=== PATIENT | male | born 1960 | race Caucasian/White ===

== ENCOUNTER 2018-02-22 11:03 | Inpatient (IN) | payer MEDICARE, OTHER ==
[2018-02-22] MEDS ORDERED: SODIUM CHLORIDE 0.9% 1,000 ML IV STA ×2 (11:20→11:23)
--- NOTE | 2018-02-22 11:30 | ED ---
General Adult HPI - General Chief complaint: Recheck/Abnormal Lab/Rx Stated complaint: Abnormal Labs Time Seen by Provider: 02/22/18 11:16 Source: patient, EMS Mode of arrival: EMS Limitations: no limitations - History of Present Illness Initial comments: This 57-year-old white male presents with some jaundice. He states that this apparently has been going on for approximately one week. He states that he is otherwise asymptomatic. He denies any abdominal pain, fevers, chills, nausea, vomiting, or diarrhea. He currently is living in the [facility]. He is legally blind. He does have a history of the lateral lower extremity chronic wounds. He denies any previous similar incidents. He is only had surgery on his appendix in regard to his abdomen. No other complaints or modifying factors. He denies drinking any alcohol whatsoever. He apparently had a recent ultrasound of his abdomen which showed gallstones. He also had some laboratory done yesterday which does show elevation of his liver function studies with a bilirubin of 7. - Related Data Home Medications Medication Instructions Recorded Confirmed Acetaminophen Tab [Tylenol Tab] 1,000 mg PO Q8H PRN 02/22/18 02/22/18 Bisacodyl 10 mg RECTAL DAILY PRN 02/22/18 02/22/18 Carvedilol [Coreg] 3.125 mg PO BID 02/22/18 02/22/18 Clopidogrel [Plavix] 75 mg PO DAILY 02/22/18 02/22/18 Famotidine [Pepcid] 20 mg PO DAILY 02/22/18 02/22/18 Gabapentin [Neurontin] 400 mg PO Q6H 02/22/18 02/22/18 HYDROcodone/APAP 5-325MG [[place] 1 tab PO Q6H PRN 02/22/18 02/22/18 5-325] Heparin Sodium,Porcine [Heparin 5,000 unit SQ Q12H 02/22/18 02/22/18 Sodium] Insulin Aspart [NovoLOG See Protocol SQ ACHS 02/22/18 02/22/18 (formulary)] Med Plus 2.0 90 ml PO DAILY 02/22/18 02/22/18 Melatonin 5 mg PO HS 02/22/18 02/22/18 Multivitamins, Thera [Multivitamin 1 tab PO DAILY 02/22/18 02/22/18 (formulary)] Polyvinyl Alcohol Danni 1.4% 1 drop LEFT EYE TID 02/22/18 02/22/18 Sertraline [Zoloft] 75 mg PO DAILY 02/22/18 02/22/18 Tamsulosin HCl [Flomax] 0.4 mg PO DAILY 02/22/18 02/22/18 Allergies Allergy/AdvReac Type Severity Reaction Status Date / Time No Known Allergies Allergy Verified 02/22/18 11:17 Review of Systems ROS Statement: Those systems with pertinent positive or pertinent negative responses have been documented in the HPI. ROS Other: All systems not noted in ROS Statement are negative. Past Medical History Past Medical History: CVA/TIA, Diabetes Mellitus, Eye Disorder, Hypertension History of Any Multi-Drug Resistant Organisms: None Reported Past Surgical History: Appendectomy, Joint Replacement, Orthopedic Surgery Past Psychological History: No Psychological Hx Reported Smoking Status: Former smoker Past Alcohol Use History: Occasional Past Drug Use History: None Reported General Exam - General Exam Comments Initial Comments: GENERAL: The patient is well nourished and well hydrated. VITAL SIGNS: Heart rate, blood pressure, respiratory rate reviewed as recorded in nurse's notes. EYES: Pupils are round and reactive. Extraocular movements are intact. No conjunctival / lid redness or swelling. Icterus is noted. ENT: No external evidence of injury, swelling, or ecchymosis. Airway is patent. Throat is clear. NECK: Nontender. No swelling or evidence of injury. No subcutaneous emphysema. Trachea is midline. No thyroid mass. HEART: Regular rate and rhythm. Good peripheral pulses. LUNGS/CHEST: Breath sounds clear and equal bilaterally. No rales, rhonchi, or wheezes. No ecchymosis, subcutaneous emphysema, or tenderness. ABDOMEN: Abdomen soft without tenderness. There is a significantly enlarged liver. No peritoneal signs. No abdominal wall swelling or ecchymosis. EXTREMITIES: No extremity tenderness. Normal muscle tone and function. No thoracolumbar tenderness. NEUROLOGIC: Sensation is grossly intact. Cranial nerve exam reveals face is symmetrical, tongue is midline, speech is clear. SKIN: No abrasions or ecchymosis is noted. No induration or masses noted. Jaundice as noted diffusely. There are chronic ulcers noted to the bilateral foot and ankle area as well as the decubitus region. PSYCHIATRIC: Alert and oriented. Appropriate behavior and judgment. Limitations: no limitations Course Vital Signs 02/22/18 02/22/18 11:07 12:30 Temperature 98.4 F Pulse Rate 60 59 L Respiratory 18 18 Rate Blood Pressure 130/72 143/74 O2 Sat by Pulse 100 99 Oximetry Medical Decision Making - Medical Decision Making The patient was seen and examined. All diagnostics were reviewed. The patient' s liver function studies are significantly elevated. The bilirubin is approximately 8 and the transaminase studies are also significantly elevated. The patient had a gallbladder study done which shows dilation of the biliary system and possible abnormality near pancreatic head. The radiologist recommends a computed tomography scan. The computed tomography scan came back showing a suspected pancreatic carcinoma. There is also again dilated biliary ducts and hydrops of the gallbladder. It is felt as though the patient would require admission to the hospital for further treatment. He was informed of his study findings. The case is discussed with internal medicine and they recommend a GI consult. He is in no distress on recheck and is admitted to the hospital for full admit. - Lab Data Result diagrams: 02/22/18 11:12 02/22/18 11:12 Lab Results 02/22/18 02/22/18 02/22/18 Range/Units 11:12 11:12 11:12 WBC 11.5 H (3.8-10.6) k/uL RBC 4.41 (4.30-5.90) m/uL Hgb 13.3 (13.0-17.5) gm/dL Hct 40.5 (39.0-53.0) % MCV 91.7 (80.0-100.0) fL MCH 30.2 (25.0-35.0) pg MCHC 32.9 (31.0-37.0) g/dL RDW 15.9 H (11.5-15.5) % Plt Count 329 (150-450) k/uL Neutrophils % (Manual) 77 % Lymphocytes % (Manual) 16 % Monocytes % (Manual) 7 % Neutrophils # (Manual) 8.86 H (1.3-7.7) k/uL Lymphocytes # (Manual) 1.84 (1.0-4.8) k/uL Monocytes # (Manual) 0.81 (0-1.0) k/uL Nucleated RBCs 0 (0-0) /100 WBC Rouleaux Present PT 11.5 (9.0-12.0) sec INR 1.2 H (<1.2) APTT 35.3 H (22.0-30.0) sec Sodium 138 (137-145) mmol/L Potassium 5.0 (3.5-5.1) mmol/L Chloride 101 (98-107) mmol/L Carbon Dioxide 24 (22-30) mmol/L Anion Gap 13 mmol/L BUN 14 (9-20) mg/dL Creatinine 0.60 L (0.66-1.25) mg/dL Est GFR (CKD-EPI)AfAm >90 (>60 ml/min/1.73 sqM) Est GFR (CKD-EPI)NonAf >90 (>60 ml/min/1.73 sqM) Glucose 119 H (74-99) mg/dL Plasma Lactic Acid Damaso (0.7-2.0) mmol/L Calcium 9.1 (8.4-10.2) mg/dL Total Bilirubin 8.6 H (0.2-1.3) mg/dL AST 260 H (17-59) U/L ALT 162 H (21-72) U/L Alkaline Phosphatase 1413 H (38-126) U/L Total Protein 7.5 (6.3-8.2) g/dL Albumin 3.1 L (3.5-5.0) g/dL Amylase 61 (30-110) U/L Lipase 180 (23-300) U/L 02/22/ Range/Units 11:12 WBC (3.8-10.6) k/uL RBC (4.30-5.90) m/uL Hgb (13.0-17.5) gm/dL Hct (39.0-53.0) % MCV (80.0-100.0) fL MCH (25.0-35.0) pg MCHC (31.0-37.0) g/dL RDW (11.5-15.5) % Plt Count (150-450) k/uL Neutrophils % (Manual) % Lymphocytes % (Manual) % Monocytes % (Manual) % Neutrophils # (Manual) (1.3-7.7) k/uL Lymphocytes # (Manual) (1.0-4.8) k/uL Monocytes # (Manual) (0-1.0) k/uL Nucleated RBCs (0-0) /100 WBC Rouleaux PT (9.0-12.0) sec INR (<1.2) APTT (22.0-30.0) sec Sodium (137-145) mmol/L Potassium (3.5-5.1) mmol/L Chloride (98-107) mmol/L Carbon Dioxide (22-30) mmol/L Anion Gap mmol/L BUN (9-20) mg/dL Creatinine (0.66-1.25) mg/dL Est GFR (CKD-EPI)AfAm (>60 ml/min/1.73 sqM) Est GFR (CKD-EPI)NonAf (>60 ml/min/1.73 sqM) Glucose (74-99) mg/dL Plasma Lactic Acid Damaso 1.3 (0.7-2.0) mmol/L Calcium (8.4-10.2) mg/dL Total Bilirubin (0.2-1.3) mg/dL AST (17-59) U/L ALT (21-72) U/L Alkaline Phosphatase (38-126) U/L Total Protein (6.3-8.2) g/dL Albumin (3.5-5.0) g/dL Amylase (30-110) U/L Lipase (23-300) U/L Disposition Clinical Impression: Jaundice, Hepatomegaly, Hepatic failure, Pancreatic carcinoma, Gallbladder hydrops, Hypertension, Decubitus ulcer Disposition: [facility] Condition: Fair Referrals: Tyrell Nash MD [Primary Care Provider] - 1-2 days Time of Disposition: 15:51 Decision Date: 02/22/18 Decision Time: 15:51
[2018-02-22] MEDS ORDERED: HYDROcodone/APAP 5-325MG 1 EACH TAB PO STA (11:34)
[2018-02-22 11:56] LABS: ALT 162 U/L (21-72); AST 260 U/L (17-59); Albumin 3.1 g/dL (3.5-5.0); Alkaline Phosphatase 1413 U/L (38-126); Amylase 61 U/L (30-110); Anion Gap 13 mmol/L; Blood Urea Nitrogen 14 mg/dL (9-20); Calcium 9.1 mg/dL (8.4-10.2); Carbon Dioxide 24 mmol/L (22-30); Chloride 101 mmol/L (98-107); Glucose 119 mg/dL (74-99); Lipase 180 U/L (23-300); Sodium 138 mmol/L (137-145); Total Bilirubin 8.6 mg/dL (0.2-1.3); Total Protein 7.5 g/dL (6.3-8.2)
[2018-02-22 12:11] LABS: INR 1.2 (<1.2); Partial Thromboplastin Time 35.3 sec (22.0-30.0); Prothrombin Time 11.5 sec (9.0-12.0)
[2018-02-22 12:13] LABS: HCT 40.5 % (39.0-53.0); HGB 13.3 gm/dL (13.0-17.5); MCH 30.2 pg (25.0-35.0); MCHC 32.9 g/dL (31.0-37.0); MCV 91.7 fL (80.0-100.0); Mean Platelet Volume 7.3; Platelet Count 329 k/uL (150-450); RBC 4.41 m/uL (4.30-5.90); RDW 15.9 % (11.5-15.5); WBC 11.5 k/uL (3.8-10.6)
[2018-02-22 12:25] LABS: Lymphocytes # (M) 1.84 k/uL (1.0-4.8); Monocytes # (M) 0.81 k/uL (0-1.0); Neutrophils # (M) 8.86 k/uL (1.3-7.7); Neutrophils % (M) 77 %; Nucleated Red Blood Cells 0 /100 WBC (0-0); Rouleaux Present; Total Cells Counted 100
--- NOTE | 2018-02-22 12:27 | US ---
EXAMINATION TYPE: US abdomen complete DATE OF EXAM: 02/22/2018 COMPARISON: NONE CLINICAL HISTORY: jaundice. Patient states no abdominal pain, no nausea or vomiting. EXAM MEASUREMENTS: Liver Length: 20.0 cm Gallbladder Wall: 0.2 cm CBD: 1.8 cm Spleen: 10.9 cm Right Kidney: 10.5 x 4.8 x 4.9 cm Left Kidney: 11.3 x 6.2 x 4.8 cm Pancreas: Majority Obscured by bowel gas Liver: Enlarged. Heterogenous. Dilated ducts. Echogenic foci visualized in right lobe measuring 0.6 x 0.6 x 0.9 cm Gallbladder: Hydropic. No stones or sludge visualized. Patient unable to roll to LLD Evidence for sonographic Kaplan's sign: No CBD: Dilated. Distal portion is obscured by bowel gas Spleen: wnl Right Kidney: Echogenic foci visualized measuring 0.6 cm Left Kidney: Cystic area visualized lower pole measuring 1.1 x 1.0 x 1.2 cm. Upper IVC: wnl Abd Aorta: Obscured by overlying bowel gas, visualized portions wnl Visualized portion of pancreas is slightly heterogeneous without mass or ductal dilatation. Portions are secured by overlying bowel gas on images saved. Visualized liver is heterogeneously hyperechoic w ith mild to moderate diffuse intrahepatic ductal dilatation. Evaluation for focal masses suboptimal d ue to the heterogeneity. Technologist ramirez a 6 mm shadowing calcification in the liver right hepatic lobe. Gallbladder has distended margins with dilatation. No shadowing mobile gallstones or perichole cystic fluid is identified. Common bile duct is dilated at 18 mm at level of kacey hepatis. Technolog ist ramirez 1.1 cm exophytic round hypoechoic lesion left kidney mid to lower pole level favoring simpl e cyst but too small to definitively characterize on images saved. Distal CBD cannot be evaluated due to shadowing from overlying bowel gas to see if there is obstructing lesion or abrupt tapering. IMPRESSION: Moderate intrahepatic and extra hepatic biliary dilatation. Advise follow-up CT to furthe r evaluate near ampulla.
[2018-02-22] MEDS ORDERED: RX INFO: IV CONTRAST WAS GIVEN 1 EACH MISC MISCELLANE PRN (13:36)
[2018-02-22] MEDS ORDERED: KETOROLAC 30 MG/ML 1 ML VIAL IVP STA (14:13)
--- NOTE | 2018-02-22 15:05 | CT ---
EXAMINATION TYPE: CT abdomen pelvis w con DATE OF EXAM: 02/22/2018 COMPARISON: Ultrasound abdomen same date HISTORY: Abnormal labs, jaundice. CT DLP: 1191.9 mGycm Automated exposure control for dose reduction was used. TECHNIQUE: Helical acquisition of images from the lung bases through the pelvis have been completed. CONTRAST: Performed without Oral Contrast and with IV Contrast, patient injected with 100 mL of Isovue 300. FINDINGS: The heart is enlarged. There is a lead present within the right heart. Distal esophagus calvin ears somewhat thickened, there may be a small hiatal hernia. LUNG BASES: Small right pleural effusion and associated atelectasis is present. AORTA: No significant abnormality is appreciated. LIVER/GB: Liver shows diffuse intrahepatic biliary ductal dilation. Gallbladder is hydropic. There is a calcification in the inferior right lobe liver which is coarse measuring approximately 11 mm. Dist al common bile duct tapers abruptly at the level of the head of the pancreas. PANCREAS: Pancreatic duct is dilated. The head of the pancreas there is a 5.2 x 5.5 cm mixed density mass, the common bile duct tapers abruptly at this level. No definite encasement of the superior mese nteric vein or artery. Head of the pancreas shows a local posterior lymph node that appears enlarged. SPLEEN: No significant abnormality is seen. ADRENALS: No significant abnormality is seen. KIDNEYS: Focal area of scarring present at the midpole the upper pole the right kidney with associate d calcification, caliectasis is noted in the right kidney. No hydronephrosis bilaterally. Subcentimet er cortical cyst present at the lower pole of the left and right kidney. REPRODUCTIVE ORGANS: No significant abnormality is seen BOWEL: The sigmoid colon, rectum shows wall thickening, correlate for possible underlying colitis. N o evident bowel obstruction. Fat plane in entirety between the head of the pancreas and duodenum is n ot identified with certainty. FREE AIR: No Free Air visible. ASCITES: There is fluid present about the liver. PELVIC ADENOPATHY: None visualized. RETROPERITONEAL ADENOPATHY: No Retroperitoneal Adenopathy visible. URINARY BLADDER: Somewhat distended with urine. There is a thickened wall, correlate for chronic out let obstruction, cystitis. OSSEOUS STRUCTURES: There are degenerative disc changes in the visualized spine, facet arthropathy. IMPRESSION: PANCREATIC CARCINOMA WITH DILATED BILIARY DUCTS AND HYDROPIC GALLBLADDER DESCRIBED. CARDIOMEGALY. CORRELATE FOR COLITIS, CYSTITIS. CONSIDER ONCOLOGIC SURGICAL CONSULT. ADDITIONAL FINDINGS ABOVE.
[2018-02-22] MEDS ORDERED: NALOXONE 0.4 MG/ML 1 ML VIAL IV PRN (15:52)
[2018-02-22] MEDS ORDERED: ONDANSETRON 4 MG/2 ML VIAL IVP PRN (15:52)
[2018-02-22] MEDS ORDERED: BISACODYL 10 MG SUPP RECTAL PRN (15:55)
[2018-02-22] MEDS: HYDROcodone/APAP 5-325MG 1 EACH TAB PO PRN (17:50)
[2018-02-22 20:07] LABS: Glucose,Whole Blood 190 mg/dL (75-99)
[2018-02-22] MEDS: GABAPENTIN 400 MG CAP PO SCH ×2 (20:43→21:55)
[2018-02-22] MEDS: INSULIN ASPART 100 UNIT/ML 1 ML 10 ML VIAL SQ SCH ×2 (20:43→21:55)
--- NOTE | 2018-02-22 21:36 | HP ---
HISTORY AND PHYSICAL CHIEF COMPLAINTS: Jaundice and abnormal labs. HISTORY OF PRESENT ILLNESS: This 57-year-old gentleman with a past history of diabetes and CVA TIA hypertension is present med large at this time. The patient had neuropathy at that time. The patient was noted to have increase in jaundice. The patient also had chronic wounds at the both legs and also coccyx area to grade 2-3 and the patient was taken to [facility] and was admitted for further evaluation treatment. On admission, the patient had hyperbilirubinemia with increased AST, ALT and alkaline phosphatase elevated to 1413. The patient also had abdominal and pelvis CAT scan which showed probably pancreatic carcinoma with dilated biliary ducts and hydropic gallbladder also. There is no history of fever, rigors or chills. No history of headache, loss of consciousness, seizures at this time. PAST MEDICAL HISTORY: History of CVA, TIA, diabetes mellitus, hypertension, appendectomy. MEDICATIONS: Prior to admission include home medications are: 1. Flomax 0.4 daily. 2. Zoloft 75 mg. 4. Multivitamins 1 p.o. daily. 5. Melatonin 5 mg p.o. q.h.s. 6. NovoLog a.c. and q.h.s. 7. Heparin 5000 subcu b.i.d. 8. [place] 5 mg q.6h. 9. Neurontin 400 mg q.6h. 10.Pepcid 20 mg p.o. daily. 11.Plavix 75 mg. 12.Coreg 3.125 b.i.d. 13.Bisacodyl 10 mg rectally daily p.r.n. 14.Tylenol 1000 mg p.o. p.r.n. ALLERGIES: None. FAMILY HISTORY: Family history no history of heart disease or strokes in family. SOCIAL HISTORY: Previous history of smoking. Occasional alcohol intake. REVIEW OF SYSTEMS: ENT: Patient has got significant difficulties in vision, possibly diabetic retinopathy, otherwise cardiovascular no angina. Respiration no cough. GI as mentioned earlier. no dysuria or hematuria. Nervous System: As mentioned earlier. Allergy/Immunology: No history of asthma or hayfever. Musculoskeletal as mentioned earlier. Hematology/Oncology: No history of anemia. Endocrine: As mentioned earlier. Constitutional: As mentioned earlier. Dermatology: Negative. Rheumatology: Negative. Psychiatric: As mentioned earlier. PHYSICAL EXAM: The patient is alert and oriented times three. Pulse 59, blood pressure 140/70, respiration 20, temp 97.2, pulse ox 99% on room air. HEENT: Conjunctivae icteric. Vision diminished bilaterally. Otherwise, oral mucosa is moist. Icteric. Neck is no jugular venous distention. No carotid bruit. No lymph node enlargement. Cardiovascular system: S1, S2. No S3, no S4. Respiratory: Breath sounds diminished in the bases. A few scattered rhonchi and crackles. ABDOMEN: Soft. Diffuse fullness present especially in the epigastrium. Vague mass palpable. Bowel sounds present. No ascites. Legs: No edema and no swelling. NERVOUS SYSTEM: Higher functions as mentioned earlier. Moves all four limbs. No focal deficits. Lymphatics: No lymph nodes palpable in the neck, axillae or groin. Skin: Multiple decubitus in the sacral area as well as bilateral legs also present. LABS: WBC 11.5, hemoglobin 13.3, glucose 119, total protein is 8.3, AST 260, ALT is 162, alkaline phosphatase 1413. The CT scan of the abdomen and pelvis the result showed pancreatic carcinoma with dilated hydrops gallbladder with cardiomegaly, possibly colitis, cystitis. 5.2 x 5.4 cm mixed density mass in the head of the pancreas. ASSESSMENT: 1. Possible pancreatic cancer with extrahepatic biliary obstruction and obstructive jaundice. 2. Increased WBC. 3. Bilateral leg ulceration as well as sacral decubitus. 4. History of neuropathy. 5. Diabetes mellitus type 2 with diabetic retinopathy. 6. History of cerebrovascular accident. 7. Hypertension. 8. Appendectomy. 9. Degenerative joint disease. 10.Remote history of nicotine dependence. 11.FULL CODE. RECOMMENDATIONS AND DISCUSSION: This 57-year-old gentleman who presented with multiple complex medical issues, will monitor the patient closely, continue the current medications, management and symptomatic treatment. Otherwise at this time I recommend repeat labs in the morning. Hematology and oncology evaluation. The overall prognosis extremely guarded. We will also recommend Gastroenterology evaluation also for possible ERCP. Otherwise, ERCP and biopsy or even brush biopsy. The prognosis guarded because of multiple complex medical issues. Further recommendations to follow. A copy of dictation being forwarded for Dr. Vail who is the primary care physician. MMODL / IJN: [id number] / [facility]
[2018-02-22] MEDS: KETOROLAC 30 MG/ML 1 ML VIAL IVP PRN (21:53)
[2018-02-22] MEDS: CARVEDILOL 3.125 MG TAB PO SCH (21:55)
[2018-02-22] MEDS: MELATONIN 5 MG TABLET PO SCH (21:55)
[2018-02-22] MEDS: ARTIFICIAL TEARS-HYPROMELLOSE DROPS 15 ML BTL LEFT EYE SCH ×2 (21:56→22:01)
[2018-02-23] MEDS: MORPHINE ORAL SOLN 10 MG/5 ML CUP PO PRN ×2 (00:48→22:32)
[2018-02-23 01:16] LABS: Appearance,Urine Clear (Clear); Bilirubin,Urine 4+ (Negative); Blood,Urine Negative (Negative); Color,Urine Dark Brown; Glucose,Urine (UA) Negative (Negative); Ketones,Urine Negative (Negative); Leukocyte Esterase,Urine Negative (Negative); Mucus,Urine Rare /hpf; Nitrite,Urine Negative (Negative); Protein,Urine 1+ (Negative); RBC,Urine 1 /hpf (0-5); WBC,Urine 2 /hpf (0-5)
[2018-02-23 01:17] LABS: Specific Gravity,Urine >1.050 (1.001-1.035)
[2018-02-23] MEDS: GABAPENTIN 400 MG CAP PO SCH ×4 (05:33→21:50)
[2018-02-23] MEDS: KETOROLAC 30 MG/ML 1 ML VIAL IVP PRN (06:16)
[2018-02-23 07:34] LABS: Glucose,Whole Blood 80 mg/dL (75-99)
[2018-02-23] MEDS: INSULIN ASPART 100 UNIT/ML 1 ML 10 ML VIAL SQ SCH ×4 (07:35→21:51)
[2018-02-23 08:04] LABS: HCT 38.1 % (39.0-53.0); MCHC 31.6 g/dL (31.0-37.0); MCV 94.9 fL (80.0-100.0); Mean Platelet Volume 7.1; Platelet Count 301 k/uL (150-450); RBC 4.01 m/uL (4.30-5.90); RDW 15.9 % (11.5-15.5); WBC 11.1 k/uL (3.8-10.6)
[2018-02-23 08:22] LABS: ALT 149 U/L (21-72); AST 217 U/L (17-59); Albumin 2.6 g/dL (3.5-5.0); Alkaline Phosphatase 1304 U/L (38-126); Anion Gap 12 mmol/L; Blood Urea Nitrogen 14 mg/dL (9-20); Calcium 8.4 mg/dL (8.4-10.2); Carbon Dioxide 23 mmol/L (22-30); Chloride 105 mmol/L (98-107); Glucose 79 mg/dL (74-99); Potassium 4.5 mmol/L (3.5-5.1); Sodium 140 mmol/L (137-145); Total Bilirubin 8.1 mg/dL (0.2-1.3); Total Protein 6.3 g/dL (6.3-8.2)
[2018-02-23 08:26] LABS: Eosinophils # (M) 0.11 k/uL (0-0.7); Lymphocytes # (M) 2.11 k/uL (1.0-4.8); Metamyelocytes # (M) 0.11 k/uL (0); Metamyelocytes % 1 %; Monocytes # (M) 0.78 k/uL (0-1.0); Myelocytes # (M) 0.11 k/uL (0); Myelocytes % 1 %; Neutrophils # (M) 7.99 k/uL (1.3-7.7); Neutrophils % (M) 72 %; Nucleated Red Blood Cells 0 /100 WBC (0-0); Total Cells Counted 200
[2018-02-23 08:28] LABS: Large Platelets Present; Rouleaux Present
[2018-02-23] MEDS: SERTRALINE 25 MG TAB PO SCH ×2 (08:41→08:51)
[2018-02-23] MEDS: PANTOPRAZOLE 40 MG/10 ML VIAL IV SCH (08:42)
[2018-02-23] MEDS: TAMSULOSIN 0.4 MG CAP.ER.24H PO SCH (08:42)
[2018-02-23] MEDS: HYDROcodone/APAP 5-325MG 1 EACH TAB PO PRN ×3 (08:43→19:16)
[2018-02-23] MEDS: CLOPIDOGREL 75 MG TAB PO SCH (08:43)
[2018-02-23] MEDS: CARVEDILOL 3.125 MG TAB PO SCH ×2 (08:44→18:05)
[2018-02-23] MEDS: ENOXAPARIN 40 MG/0.4 ML SYRINGE SQ SCH (08:44)
[2018-02-23] MEDS ORDERED: [UNRECOGNIZED DRUG - OTHER] PO SCH (09:00)
[2018-02-23] MEDS: ARTIFICIAL TEARS-HYPROMELLOSE DROPS 15 ML BTL LEFT EYE SCH ×3 (10:42→21:50)
[2018-02-23 11:44] LABS: Glucose,Whole Blood 113 mg/dL (75-99)
[2018-02-23 12:26] VITALS: BMI 28.8
[2018-02-23] MEDS: MULTIVITAMINS, THERA 1 EACH TAB PO SCH (15:14)
[2018-02-23] MEDS: SODIUM CHLORIDE 0.9% 1,000 ML IV SCH (15:15)
[2018-02-23 16:42] LABS: Glucose,Whole Blood 169 mg/dL (75-99)
--- NOTE | 2018-02-23 17:16 | PN ---
PROGRESS NOTE DATE OF SERVICE: 02/23/2018 This 57-year-old gentleman with a past medical history of multiple medical problems was admitted with possible pancreatic cancer and extrahepatic biliary obstruction. Patient has significant decubitus ulcers, also. His bilirubin is elevated at this time. The cultures are negative so far. White count is also elevated at 11.1. Gastroenterology is following the patient closely. Total bilirubin is 8.1. AST is 217. Yesterday it was 260, ALT is 149, yesterday 162. Alkaline phosphatase is 1304, yesterday 1413. Total protein is 2.6 and 3.1. UA is noted. Past medical history is noted. REVIEW OF SYSTEMS: CARDIOVASCULAR SYSTEM: No angina, palpitations. RESPIRATORY SYSTEM: As mentioned earlier. GI: As mentioned earlier. : No dysuria or retention. NERVOUS SYSTEM: No numbness, weakness. MEDICATIONS: Current medications are reviewed and include: 1. [place] 5 mg q.4 p.r.n. 2. Artificial Tears. 3. Dulcolax 10 mg daily p.r.n. 4. Coreg 3.125 mg p.o. b.i.d. 5. Plavix 75 mg p.o. daily. 6. Lovenox 40 mg subcutaneously daily. 7. Neurontin 400 mg q.6 p.r.n. 8. NovoLog scale. 9. Toradol 15 mg q.6. 10.Melatonin 5 mg at bedtime. 11.Multivitamin. 12.Narcan. 13.Zofran. 14.Protonix. PHYSICAL EXAMINATION: Patient is alert, oriented x3. Conjunctivae icteric. Oral mucosa icteric. NECK: No jugular venous distention. No carotid bruit. No lymph node enlargement. CARDIOVASCULAR SYSTEM: S1, S2 muffled. RESPIRATORY SYSTEM: Breath sounds diminished at the bases. A few scattered rhonchi and crackles. ABDOMEN: Soft. Mild diffuse distention present. No guarding or rigidity. LEGS: No edema. No swelling. NERVOUS SYSTEM: Higher functions as mentioned earlier. Moves all 4 limbs. No focal motor or sensory deficit. LYMPHATICS: No lymph node palpable in neck, axillae or groin. SKIN: No ulcer, rash, bleeding. LABS: WBC 11.1, hemoglobin 12. Other labs as mentioned earlier. ASSESSMENT: 1. Obstructive jaundice with extrahepatic biliary obstruction, possibly pancreatic malignancy with a mass in the head of the pancreas. 2. Increased white count. 3. Bilateral leg ulcerations and sacral decubitus. 4. History of peripheral neuropathy. 5. Diabetes mellitus, type 2, with diabetic retinopathy. 6. History of cerebrovascular accident. 7. Hypertension. 8. Appendectomy. 9. Degenerative joint disease. 10.Remote history of nicotine dependence. 11.FULL CODE. RECOMMENDATIONS AND DISCUSSION: In this 57-year-old gentleman who presented with multiple complex medical issues., we will monitor the patient closely, continue the current medications, continue with symptomatic treatment. Otherwise at this time I recommend repeat labs. ERCP by Gastroenterology with possible biopsy. Otherwise, continue the rest of the medications. Pain medications. I would also recommend empiric antibiotics and infectious disease evaluation as well. Prognosis guarded because of multiple complex medical issues. Further recommendations to follow. MMODL / IJN: [id number] /
[2018-02-23] MEDS: PIPERACILLIN-TAZOBACTAM 3.375 GM in DEXTROSE/WATER 1 50ML.BAG IVPB SCH ×2 (18:04→23:13)
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
[2018-02-23 20:36] LABS: Glucose,Whole Blood 232 mg/dL (75-99)
[2018-02-23] MEDS: MELATONIN 5 MG TABLET PO SCH (21:50)
[2018-02-24] MEDS: GABAPENTIN 400 MG CAP PO SCH ×4 (04:24→21:03)
[2018-02-24] MEDS: SODIUM CHLORIDE 0.9% 1,000 ML IV SCH (04:25)
[2018-02-24] MEDS: HYDROcodone/APAP 5-325MG 1 EACH TAB PO PRN ×4 (04:27→19:25)
[2018-02-24 07:19] LABS: ALT 129 U/L (21-72); AST 167 U/L (17-59); Albumin 2.4 g/dL (3.5-5.0); Alkaline Phosphatase 1196 U/L (38-126); Anion Gap 9 mmol/L; Blood Urea Nitrogen 13 mg/dL (9-20); Calcium 8.2 mg/dL (8.4-10.2); Carbon Dioxide 23 mmol/L (22-30); Chloride 106 mmol/L (98-107); Glucose 129 mg/dL (74-99); Potassium 4.4 mmol/L (3.5-5.1); Sodium 138 mmol/L (137-145); Total Bilirubin 7.7 mg/dL (0.2-1.3); Total Protein 5.8 g/dL (6.3-8.2)
[2018-02-24] MEDS: INSULIN ASPART 100 UNIT/ML 1 ML 10 ML VIAL SQ SCH ×4 (07:25→21:02)
[2018-02-24 07:29] LABS: Anisocytosis Slight; HCT 37.8 % (39.0-53.0); HGB 12.2 gm/dL (13.0-17.5); Hypochromasia Slight; MCH 30.7 pg (25.0-35.0); MCHC 32.3 g/dL (31.0-37.0); MCV 95.1 fL (80.0-100.0); Platelet Count 305 k/uL (150-450); RBC 3.98 m/uL (4.30-5.90); WBC 19.6 k/uL (3.8-10.6)
[2018-02-24 07:32] LABS: Glucose,Whole Blood 130 mg/dL (75-99)
[2018-02-24] MEDS: CLOPIDOGREL 75 MG TAB PO SCH (07:46)
[2018-02-24] MEDS: CARVEDILOL 3.125 MG TAB PO SCH ×2 (07:46→17:55)
[2018-02-24] MEDS: ENOXAPARIN 40 MG/0.4 ML SYRINGE SQ SCH (07:46)
[2018-02-24] MEDS: PANTOPRAZOLE 40 MG/10 ML VIAL IV SCH (07:46)
[2018-02-24] MEDS: TAMSULOSIN 0.4 MG CAP.ER.24H PO SCH (07:47)
[2018-02-24] MEDS: SERTRALINE 25 MG TAB PO SCH (07:47)
[2018-02-24] MEDS: ARTIFICIAL TEARS-HYPROMELLOSE DROPS 15 ML BTL LEFT EYE SCH ×3 (07:48→21:05)
[2018-02-24] MEDS: MORPHINE ORAL SOLN 10 MG/5 ML CUP PO PRN ×3 (07:49→22:24)
[2018-02-24 08:00] LABS: Lymphocytes # (M) 1.57 k/uL (1.0-4.8); Monocytes # (M) 0.78 k/uL (0-1.0); Neutrophils # (M) 17.25 k/uL (1.3-7.7); Neutrophils % (M) 88 %; Nucleated Red Blood Cells 0 /100 WBC (0-0); Polychromasia Present; Total Cells Counted 100
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
[2018-02-24] MEDS: PIPERACILLIN-TAZOBACTAM 3.375 GM in DEXTROSE/WATER 1 50ML.BAG IVPB SCH ×2 (08:19→15:36)
[2018-02-24] MEDS: MULTIVITAMINS, THERA 1 EACH TAB PO SCH (11:23)
[2018-02-24 12:15] LABS: Glucose,Whole Blood 130 mg/dL (75-99)
[2018-02-24] MEDS: KETOROLAC 30 MG/ML 1 ML VIAL IVP PRN ×2 (13:53→21:02)
--- NOTE | 2018-02-24 16:26 | PN ---
PROGRESS NOTE DATE OF SERVICE: February 24, 2018. CHIEF COMPLAINT: Tired. Darrel is seen today in followup. He feels tired. He has some pain from his decubitus on his back. No abdominal pain. No nausea or vomiting. No melena, hematochezia, hematuria, hemoptysis. MEDICATION: Reviewed in the electronic medical record. PHYSICAL EXAMINATION: Alert, oriented x3. No distress. Vital signs: Temperature 99.6 afebrile, pulse 60 and regular, respirations 16, blood pressure 100/56. HEENT: Normocephalic, atraumatic. He has scleral icterus. NECK: Supple. Chest clear to auscultation bilaterally. Heart: Regular rate and rhythm. ABDOMEN: Soft. Positive hepatomegaly. No obvious ascites. Extremities revealed no edema. However, he has evidence of significant venostasis and ulceration on both heels. LABORATORY DATA: WBC are 19.6, hemoglobin 12.2, hematocrit 37.8, and platelets are 305. IMPRESSION: 1. Clinical and radiographic picture highly suggestive of carcinoma of the head of the pancreas causing obstructive jaundice. 2. Multiple other comorbidities in this nice gentleman who is a resident at [facility]. RECOMMENDATION: 1. I agree with the planned ERCP on Monday for tissue diagnosis and possibly for palliative stent placement as well. 2. Once tissue diagnosis is obtained, then further evaluation will be conducted to determine potential resectability. However, in view of his comorbidities, this is probably going to be an unlikely option even if he had resectable disease and even systemic treatment is going to be associated with significant toxicities given his other comorbidities. However, further decision in that regard would be made once tissue diagnosis is obtained. MMODL / IJN: [id number] /
[2018-02-24 16:42] LABS: Glucose,Whole Blood 202 mg/dL (75-99)
--- NOTE | 2018-02-24 16:59 | PN ---
PROGRESS NOTE DATE OF SERVICE: 02/24/2018 This 57-year-old gentleman who was admitted with obstructive jaundice and hepatic biliary obstruction is being closely monitored. Gastroenterology are planning ERCP on Monday. No chest pain. No palpitations. No fever. EXAM: Alert and oriented times three. Pulse 60, blood pressure 123/66, respirations 16, temperature 98.2, pulse ox 99% on room air. HEENT: Conjunctivae normal. Neck: No jugular venous distention. Cardiovascular: S1, S2. Respiratory: Breath sounds diminished in the bases. A few rhonchi. No crackles. Abdomen soft, obese. Legs no edema. No swelling. Central nervous system: No focal deficits. LABS: WBC 19.6, hemoglobin 12.7. Bilirubin is 7.7, AST 167, ALT is 129. ASSESSMENT: 1. Obstructive jaundice with extrahepatic biliary obstruction, possible pancreatic malignancy with mass in the head of the pancreas. 2. Increased WBC. 3. Bilateral leg ulcerations and sacral decubitus. 4. History of peripheral neuropathy. 5. Diabetes type 2, diabetic retinopathy and legal blindness. 6. History of cerebrovascular accident. 7. Hypertension. 8. Degenerative joint disease. 9. Remote history of nicotine dependence. 10.FULL CODE. RECOMMENDATION AND DISCUSSION: Recommend to continue current medication, continue symptomatic treatment. Continue with monitoring lytes closely. Infectious disease evaluation. Broad-spectrum IV antibiotics. Cultures. I would also recommend close follow up with Gastroenterology for ERCP and brush biopsy. Prognosis guarded because of multiple complex medical issues and further recommendations to follow. We will repeat LFTs tomorrow. MMODL / IJN: [id number] /
--- NOTE | 2018-02-24 18:56 | CONS ---
CONSULTATION DATE OF CONSULTATION: 02/24/2018. REASON FOR CONSULTATION: 1. Sacral pressure ulcer. 2. Left heel pressure ulcer. 3. Right leg pressure ulcer. 4. Leukocytosis. HISTORY OF PRESENT ILLNESS: The patient is a 57-year-old male with a past medical history significant for diabetes, CVA, TIA, patient who is a [place], currently residing at the [facility]. The patient has been sent to the [facility] ER where the patient was noticed to have yellow discoloration of his skin and sclerae. Apparently his symptoms have been going on for about a week. The patient denies having any abdominal pain. Denies having any fever or chills. Denies having nausea, no vomiting. Denies having any diarrhea. Patient subsequently was evaluated by the ER physician. The patient did have ultrasound which did show large heterogeneous dilated foci visualized in the right lobe measuring 0.6 x 0.6 x 0.9 cm. Gallbladder was hydrops. CBD was dilated. A CT abdominal and pelvis was subsequently done which did show a pancreatic head mass of 5.2 x 2 cm. The patient has been afebrile on his hospital stay since he has been admitted to the hospital. He did have white count of 11.4, jumped to 19.6 today. He was empirically started on Zosyn. The patient does have elevated bilirubin of 8.2. AST, ALT elevated at 167, 129, alkaline phosphatase was 1196. He did have blood cultures obtained which are currently pending. Urine is negative and also wound cultures obtained from the sacral wound. The patient did mention that he has a wound on the sacral and bilateral leg area for almost 3 months and currently being taken care of by a physician at [facility] where he is residing. He was not very clear about what exactly they have been putting on it. Denies having pain in the sacral wound area or into the right lateral leg or the left heel area. REVIEW OF SYSTEMS: Positive for weakness but no high-grade fever. Eyes: No complaint. ENT no complaint. Respiratory: No complaint. Cardiovascular: No complaint. Genitourinary: No complaint. Gastrointestinal: As per HPI. MUSCULOSKELETAL: As per HPI. Integumentary as per HPI. PSYCHOLOGICAL: No complaint. Endocrine no complaint. Neurological: No complaint. PAST MEDICAL HISTORY: Significant for CVA, TIA, diabetes mellitus, hypertension, legally blind. PAST SURGICAL HISTORY: Appendectomy and joint replacement. SOCIAL HISTORY: Remote history of smoking. Occasionally drinks. No drug use. FAMILY HISTORY: No pertinent findings noticed. ALLERGIES: No known drug allergies. MEDICATION: Medications include the patient is currently on: 1. Flomax. 2. Zoloft. 3. Piptazobactam. 4. Protonix. 5. Zofran. 6. Narcan. 7. Theragran. 8. Morphine. 9. Melatonin. 10.Toradol. 11.NovoLog. 12.Lovenox. 13.Coreg. 14.Dulcolax. 15.Tyronza. EXAMINATION: Blood pressure is 100/57 with a pulse of 60, temperature 99.6. He is 96% on room air. General description is a middle-aged male lying in bed in no distress. No tachypnea or accessory muscle of respiration use. HEENT examination severe scleral icterus is positive. Oral mucous membranes dry. No pharyngeal erythema or thrush. Neck trachea central. No thyromegaly. Lungs unlabored breathing. Clear to auscultation. No wheeze or crackles. Heart S1, S2. Regular rate and rhythm. No murmur. ABDOMEN: Soft, no tenderness. No guarding. No rigidity. No organomegaly. EXTREMITIES: No edema of the feet. Examination of sacral area the patient did have a stage III pressure ulcer with minimal slough tissue at the base. No surrounding erythema or any foul-smelling drainage. The patient also has a wound on the right lateral leg area that is stage III pressure ulcer with slough to the base. No surrounding erythema. No foul smelling drainage. The patient also has a stage III sacral pressure ulcer to the left heel area with soft tissue. No surrounding erythema and minimal drainage. No foul smelling. Neurological: Patient is awake, alert , oriented times three. Mood and affect normal. LABS: Hemoglobin is 12.1, white count 19.6, BUN of 13, creatinine 0.59. Liver enzymes elevated as mentioned above with a bilirubin of 8.2. AST 167, ALT 129. DIAGNOSTIC IMPRESSION/PLAN: 1. Patient with a sacral pressure ulcer stage III, with slough tissue, but no cellulitis. Recommend local wound care. 2. Patient with a right lateral leg stage III pressure ulcer with no cellulitis local wound care. 3. Patient with a left heel stage III pressure ulcer with slough tissue. No cellulitis. Local wound care. 4. Patient did have elevated white count could be reactive in a patient who did have a recent possible pancreatic head tumor. Clinically, high risk of ascending cholangitis, currently not running any fever would make it to be unlikely and no other clinical focus of infection. PLAN: 1. We will apply Medihoney to the sacral wound followed by moist dressing to keep the area off the pressure. 2. We will apply Medihoney to the right lateral leg wound followed by moist dressing to keep the area off the pressure. 3. We will apply Medihoney to the left heel pressure ulcer. Keep the area off the pressure. Bilateral heel protectors. 4. We will follow up on his cultures as well as white count and adjust antibiotic if needed. Thank you for this consultation. Will follow this patient along with you. MMODL / IJN: [id number] / DOMINIC
[2018-02-24] MEDS: MELATONIN 5 MG TABLET PO SCH (21:03)
[2018-02-24 21:08] LABS: Glucose,Whole Blood 171 mg/dL (75-99)
[2018-02-25] MEDS: PIPERACILLIN-TAZOBACTAM 3.375 GM in DEXTROSE/WATER 1 50ML.BAG IVPB SCH ×4 (00:06→23:47)
[2018-02-25] MEDS: SODIUM CHLORIDE 0.9% 1,000 ML IV SCH ×2 (00:06→10:55)
[2018-02-25] MEDS: HYDROcodone/APAP 5-325MG 1 EACH TAB PO PRN ×4 (00:08→22:19)
[2018-02-25] MEDS: MORPHINE ORAL SOLN 10 MG/5 ML CUP PO PRN ×3 (04:39→14:07)
[2018-02-25] MEDS: GABAPENTIN 400 MG CAP PO SCH ×4 (04:39→22:20)
[2018-02-25 07:14] LABS: HCT 40.2 % (39.0-53.0); HGB 13.1 gm/dL (13.0-17.5); Hypochromasia Slight; MCHC 32.6 g/dL (31.0-37.0); Mean Platelet Volume 7.3; Platelet Count 313 k/uL (150-450); RBC 4.23 m/uL (4.30-5.90); WBC 18.4 k/uL (3.8-10.6)
[2018-02-25 07:30] LABS: ALT 121 U/L (21-72); AST 143 U/L (17-59); Albumin 2.5 g/dL (3.5-5.0); Alkaline Phosphatase 1125 U/L (38-126); Anion Gap 12 mmol/L; Blood Urea Nitrogen 17 mg/dL (9-20); Calcium 8.5 mg/dL (8.4-10.2); Carbon Dioxide 20 mmol/L (22-30); Chloride 107 mmol/L (98-107); Glucose 101 mg/dL (74-99); Potassium 4.6 mmol/L (3.5-5.1); Sodium 139 mmol/L (137-145); Total Bilirubin 8.8 mg/dL (0.2-1.3); Total Protein 6.4 g/dL (6.3-8.2)
[2018-02-25 07:37] LABS: Glucose,Whole Blood 108 mg/dL (75-99)
[2018-02-25 08:02] LABS: Band Neutrophils % 1 %; Eosinophils # (M) 0.18 k/uL (0-0.7); Lymphocytes # (M) 1.29 k/uL (1.0-4.8); Neutrophils % (M) 85 %; Nucleated Red Blood Cells 0 /100 WBC (0-0); Polychromasia Present; Total Cells Counted 100
[2018-02-25] MEDS: ENOXAPARIN 40 MG/0.4 ML SYRINGE SQ SCH (08:27)
[2018-02-25] MEDS: CLOPIDOGREL 75 MG TAB PO SCH (08:27)
[2018-02-25] MEDS: CARVEDILOL 3.125 MG TAB PO SCH ×2 (08:27→17:00)
[2018-02-25] MEDS: SERTRALINE 25 MG TAB PO SCH (08:28)
[2018-02-25] MEDS: PANTOPRAZOLE 40 MG/10 ML VIAL IV SCH (08:28)
[2018-02-25] MEDS: ARTIFICIAL TEARS-HYPROMELLOSE DROPS 15 ML BTL LEFT EYE SCH ×3 (08:28→22:20)
[2018-02-25] MEDS: TAMSULOSIN 0.4 MG CAP.ER.24H PO SCH (08:28)
[2018-02-25] MEDS: INSULIN ASPART 100 UNIT/ML 1 ML 10 ML VIAL SQ SCH ×4 (09:22→22:20)
[2018-02-25] MEDS: MULTIVITAMINS, THERA 1 EACH TAB PO SCH (10:56)
--- NOTE | 2018-02-25 11:07 | P.PN ---
Subjective Progress Note Date: 02/25/18 Principal diagnosis: Obstructive jaundice This is a 57-year-old male patient who presented to the hospital with obstructive jaundice and hepatic biliary obstruction. The patient has a pancreatic mass and is scheduled for an ERCP tomorrow morning. The patient is moderately jaundiced. His appetite is poor. Denies any abdominal discomfort. His discomfort is mainly in his tailbone and he is receiving pain medication which is effective. He is hemodynamically stable. Afebrile. Objective - Vital Signs Vital signs: Vital Signs Temp 97.9 F 02/25/18 07:00 Pulse 61 02/25/18 08:00 Resp 16 02/25/18 08:00 BP 127/70 02/25/18 07:00 Pulse Ox 97 02/25/18 07:00 Intake & Output 02/24/18 02/25/18 02/25/18 18:59 06:59 18:59 Intake Total 280 Balance 280 Intake: Intake, IV Titration 280 Amount Piperacillin-Tazobactam 3 50 .375 gm In Dextrose/Water 1 50ml.bag @ 12.5 mls/hr IVPB Q8HR [facility] Rx#: [id number] Sodium Chloride 0.9% 1, 230 000 ml @ 75 mls/hr IV . [id number] [facility] Rx#:[id number] Other: Voiding Method Diaper Diaper Diaper Incontinent Incontinent Incontinent # Voids 2 1 - Constitutional General appearance: Present: no acute distress - EENT Eyes: Present: normal appearance ENT: Present: normal oropharynx Ears: bilateral: normal - Neck Neck: Present: normal ROM - Respiratory Respiratory: bilateral: CTA - Cardiovascular Rhythm: regular Heart sounds: normal: S1, S2 - Gastrointestinal General gastrointestinal: Present: distended, normal bowel sounds, soft - Integumentary Integumentary: Present: jaundiced - Neurologic Neurologic: Present: CNII-XII intact - Musculoskeletal Musculoskeletal: Present: generalized weakness - Psychiatric Psychiatric: Present: A&O x's 3 - Labs CBC & Chem 7: 02/25/18 06:51 02/25/18 06:51 Labs: Abnormal Lab Results - Last 24 Hours (Table) 02/24/18 02/24/18 02/24/18 Range/Units 12:09 16:27 20:58 WBC (3.8-10.6) k/uL RBC (4.30-5.90) m/uL RDW (11.5-15.5) % Neutrophils # (Manual) (1.3-7.7) k/uL Monocytes # (Manual) (0-1.0) k/uL Carbon Dioxide (22-30) mmol/L Glucose (74-99) mg/dL POC Glucose (mg/dL) 130 H 202 H 171 H (75-99) mg/dL Total Bilirubin (0.2-1.3) mg/dL AST (17-59) U/L ALT (21-72) U/L Alkaline Phosphatase (38-126) U/L Albumin (3.5-5.0) g/dL 02/25/18 02/25/18 02/25/18 Range/Units 06:51 06:51 07:13 WBC 18.4 H (3.8-10.6) k/uL RBC 4.23 L (4.30-5.90) m/uL RDW 16.0 H (11.5-15.5) % Neutrophils # (Manual) 15.80 H (1.3-7.7) k/uL Monocytes # (Manual) 1.10 H (0-1.0) k/uL Carbon Dioxide 20 L (22-30) mmol/L Glucose 101 H (74-99) mg/dL POC Glucose (mg/dL) 108 H (75-99) mg/dL Total Bilirubin 8.8 H (0.2-1.3) mg/dL AST 143 H (17-59) U/L ALT 121 H (21-72) U/L Alkaline Phosphatase 1125 H (38-126) U/L Albumin 2.5 L (3.5-5.0) g/dL Microbiology - Last 24 Hours (Table) 02/24/18 04:30 Gram Stain - Preliminary Buttock Wound Culture - Preliminary 02/22/18 11:12 Blood Culture - Preliminary Blood No Growth after 48 hours 02/23/18 00:15 Urine Culture - Final Urine,Catheterized Assessment and Plan Assessment: Obstructive jaundice with hepatic biliary obstruction, pancreatic mass Bilateral leg ulcerations and sacral pressure ulcer History of peripheral neuropathy Diabetes type 2 Diabetic retinopathy with legal blindness History of CVA Hypertension DJD Plan: Continue with current medication regimen. No changes made today. The patient is not having any abdominal discomfort. He remains mildly jaundiced. Plan is for ERCP tomorrow with brush biopsy. The patient will be nothing by mouth after midnight. Repeat labs in the morning. We will continue to follow him closely.
[2018-02-25 11:53] LABS: Glucose,Whole Blood 107 mg/dL (75-99)
[2018-02-25 17:00] LABS: Glucose,Whole Blood 134 mg/dL (75-99)
[2018-02-25 19:50] LABS: Glucose,Whole Blood 177 mg/dL (75-99)
[2018-02-25] MEDS: MELATONIN 5 MG TABLET PO SCH (22:20)
--- NOTE | 2018-02-25 23:06 | PN ---
PROGRESS NOTE DATE OF SERVICE: 02/25/2018. REASON FOR FOLLOW UP: 1. Multiple pressure ulcers. 2. Leukocytosis. INTERVAL HISTORY: The patient is afebrile. He is breathing comfortably. Denies any chest pain, shortness of breath or cough. No abdominal pain. No diarrhea or any pain in his wound area. Scheduled for ERCP tomorrow. EXAMINATION: Blood pressure is 117/68 with a pulse of 60, temperature 97.9. He is 98% on room air. General description is a middle-aged male lying in bed in no distress. Respiratory system unlabored breathing, clear to auscultation anteriorly. Heart S1, S2. Regular rate and rhythm. ABDOMEN: Soft, no tenderness. Wound is currently dressed up. No obvious drainage on the dressing. LABS: Hemoglobin 13.1, white count 18.4, BUN of 17, creatinine 0.74, liver enzymes are elevated. DIAGNOSTIC IMPRESSION/PLAN: 1. Patient with a stage III sacral wound with slough tissue, but no cellulitis. Local wound care with Medihoney followed by moist dressing. 2. Left heel pressure ulcer and right lateral leg wound, stage III pressure ulcer. Local wound care with Medihoney followed by moist dressing. Keep the area off the pressure. 3. Patient leukocytosis reactive. The patient did have a painless jaundice, for ERCP tomorrow. Continue Zosyn while waiting for the culture to finalize. 4. Continue supportive care. MMODL / IJN: [id number] / MTDD
[2018-02-26] MEDS: SODIUM CHLORIDE 0.9% 1,000 ML IV SCH ×2 (00:02→16:59)
[2018-02-26] MEDS: GABAPENTIN 400 MG CAP PO SCH ×4 (04:14→20:46)
[2018-02-26] MEDS: HYDROcodone/APAP 5-325MG 1 EACH TAB PO PRN ×3 (04:16→20:49)
[2018-02-26 07:26] LABS: Anisocytosis Slight; HCT 37.7 % (39.0-53.0); HGB 11.8 gm/dL (13.0-17.5); Hypochromasia Moderate; MCH 30.5 pg (25.0-35.0); MCHC 31.4 g/dL (31.0-37.0); MCV 97.1 fL (80.0-100.0); Mean Platelet Volume 7.2; Platelet Count 299 k/uL (150-450); RBC 3.88 m/uL (4.30-5.90); RDW 16.2 % (11.5-15.5)
[2018-02-26 07:36] LABS: ALT 102 U/L (21-72); AST 102 U/L (17-59); Albumin 2.3 g/dL (3.5-5.0); Alkaline Phosphatase 975 U/L (38-126); Anion Gap 8 mmol/L; Blood Urea Nitrogen 17 mg/dL (9-20); Calcium 8.3 mg/dL (8.4-10.2); Carbon Dioxide 24 mmol/L (22-30); Chloride 106 mmol/L (98-107); Glucose 129 mg/dL (74-99); Potassium 4.7 mmol/L (3.5-5.1); Sodium 138 mmol/L (137-145); Total Bilirubin 8.1 mg/dL (0.2-1.3); Total Protein 5.8 g/dL (6.3-8.2)
[2018-02-26 07:38] LABS: Glucose,Whole Blood 118 mg/dL (75-99)
[2018-02-26] MEDS: INSULIN ASPART 100 UNIT/ML 1 ML 10 ML VIAL SQ SCH ×4 (08:28→22:12)
[2018-02-26] MEDS: PIPERACILLIN-TAZOBACTAM 3.375 GM in DEXTROSE/WATER 1 50ML.BAG IVPB SCH ×2 (08:29→16:58)
[2018-02-26 08:44] LABS: Eosinophils # (M) 0.33 k/uL (0-0.7); Nucleated Red Blood Cells 0 /100 WBC (0-0)
[2018-02-26 08:45] LABS: Lymphocytes # (M) 0.99 k/uL (1.0-4.8); Monocytes # (M) 0.22 k/uL (0-1.0); Neutrophils # (M) 9.57 k/uL (1.3-7.7); Neutrophils % (M) 87 %; Total Cells Counted 200
[2018-02-26 08:48] LABS: Poikilocytosis (M) Present; Spherocytes Present
[2018-02-26 09:38] LABS: INR 1.3 (<1.2); Prothrombin Time 12.2 sec (9.0-12.0)
[2018-02-26] MEDS ORDERED: INDOMETHACIN 50MG SUPPOSITORY RECTAL ONE (10:00)
[2018-02-26] MEDS: ARTIFICIAL TEARS-HYPROMELLOSE DROPS 15 ML BTL LEFT EYE SCH ×3 (10:25→20:47)
[2018-02-26] MEDS: ENOXAPARIN 40 MG/0.4 ML SYRINGE SQ SCH (10:25)
[2018-02-26] MEDS ORDERED: IV FLUID CONTINUATION 700 ML IV ONE (10:26)
[2018-02-26] MEDS ORDERED: PROPOFOL 10 MG/ML 20 ML VIAL IV ONE (10:41)
[2018-02-26] MEDS ORDERED: IOPAMIDOL-370 50ML BTL ONE (10:59)
[2018-02-26] MEDS ORDERED: IOPAMIDOL-370 50ML BTL MISCELLANE ONE (10:59)
--- NOTE | 2018-02-26 11:29 | P.PCN ---
Date of Procedure: 02/26/18 Procedure(s) Performed: Procedure: Endoscopic retrograde cholangiopancreatography ERCP with brushings for cytology and placement of a biliary stent. Preoperative diagnosis: Cholestatic jaundice and abnormal CT. Postoperative diagnosis: 1. Double duct sign with dilated pancreatic and common bile duct and biliary tree consistent with pancreatic head mass. 2. Brushings obtained for cytology and an Parker 5 cm 7-[place] biliary stent placed. Operation sedation: Was provided by anesthesia. Brief clinical history: The patient is a 57-year-old male with history of diabetes mellitus and legal blindness who was transferred from the [facility] because of jaundice. He had no abdominal pains, nausea, vomiting or fever or chills. CT of the abdomen showed a 5 cm pancreatic head mass. Patient was evaluated by oncology who recommended an ERCP for obtaining tissue and for placement of a stent. The details are summarized in the history and physical and dictated consultations and progress notes. Procedure: With the patient in the prone position and after informed consent and adequate sedation, I passed the Olympus video duodenoscope down the esophagus into the stomach. There was significant amount of partially digested food in the stomach consistent with gastroparesis. The endoscope was then passed into the pylorus into the duodenum and the papilla brought into view. The papilla appeared expanded but no obvious papillary mass was seen. Initial cannulation and injection with dye resulted in opacification of the biliary tree. I was then able to cannulate and inject dye in the pancreatic duct. Both the common bile duct and the biliary tree and the pancreatic duct were significantly dilated and they both taper in the area of the head of the pancreas consistent with double duct sign. I used the brushing over the guidewire to obtain brushings from the distal common bile duct and ampulla area and then I placed over the guidewire a 7-[place] 5 cm Parker biliary stent. The patient tolerated the procedure well. Plan: I summarized the findings to the patient. We would allow diet and monitor his liver enzymes. Will await the results from the brushings for cytology and further plans will be made based on his course. I will discuss with you and continue to follow with you with interest.
[2018-02-26] MEDS: MULTIVITAMINS, THERA 1 EACH TAB PO SCH (11:38)
--- NOTE | 2018-02-26 11:47 | FL ---
EXAMINATION TYPE: FL ERCP biliary duct only DATE OF EXAM: 02/26/2018 CLINICAL HISTORY: 57-year-old male ERCP biliary duct TECHNIQUE: Fluoroscopy. COMPARISON: None. FINDINGS: Fluoroscopic guidance was provided during ERCP performed by Dr. Leal. A total of 17 seconds of fluo roscopic time was utilized during the procedure and 3 spot images was acquired. IMPRESSION: ERCP images during fluoroscopy.
[2018-02-26] MEDS: PANTOPRAZOLE 40 MG/10 ML VIAL IV SCH (12:55)
[2018-02-26] MEDS: SERTRALINE 25 MG TAB PO SCH (12:55)
[2018-02-26] MEDS: CARVEDILOL 3.125 MG TAB PO SCH ×2 (12:55→17:02)
[2018-02-26] MEDS: CLOPIDOGREL 75 MG TAB PO SCH (12:55)
[2018-02-26] MEDS: TAMSULOSIN 0.4 MG CAP.ER.24H PO SCH (12:57)
--- NOTE | 2018-02-26 14:11 | P.PN ---
Subjective 57-year-old male patient who presented to the hospital with obstructive jaundice and hepatic biliary obstruction. The patient has a pancreatic mass and is scheduled for an ERCP tomorrow morning. The patient is moderately jaundiced. His appetite is poor. Denies any abdominal discomfort. His discomfort is mainly in his tailbone and he is receiving pain medication which is effective. He is hemodynamically stable. Afebrile. 02/26/2018 Patient is feeling much better after ERCP procedure, with stent placement patient is feeling much better abdominal pain is much better. Constitutional: Denied any fatigue denied any fever. Cardio vascular: denied any chest pain, palpitations Gastrointestinal denied any nausea vomiting Pulmonary: Denied any shortness of breath cough Neurologic denied any new focal deficits Objective - Vital Signs Vital signs: Vital Signs Temp 98.1 F 02/26/18 12:30 Pulse 74 02/26/18 12:30 Resp 18 02/26/18 12:30 BP 130/67 02/26/18 12:30 Pulse Ox 99 02/26/18 12:30 Intake & Output 02/25/18 02/26/18 02/26/18 18:59 06:59 18:59 Intake Total 240 120 Balance 240 120 Intake: IV 0 Oral 240 120 Other: Voiding Method Diaper Diaper Incontinent Incontinent # Voids 3 2 3 - Exam PHYSICAL EXAMINATION: GENERAL: The patient is alert and oriented x3, not in any acute distress. Well developed, well nourished. HEENT: Pupils are round and equally reacting to light. EOMI. patient does have scleral icterus and yellowish discoloration of skin. No conjunctival pallor. Normocephalic, atraumatic. No pharyngeal erythema. No thyromegaly. CARDIOVASCULAR: S1 and S2 present. No murmurs, rubs, or gallops. PULMONARY: Chest is clear to auscultation, no wheezing or crackles. ABDOMEN: Soft, nontender, nondistended, normoactive bowel sounds. No palpable organomegaly. MUSCULOSKELETAL: No joint swelling or deformity. EXTREMITIES: No cyanosis, clubbing, or pedal edema. NEUROLOGICAL: Gross neurological examination did not reveal any focal deficits. SKIN: No rashes. - Labs CBC & Chem 7: 02/26/18 06:40 02/26/18 06:40 Labs: Abnormal Lab Results - Last 24 Hours (Table) 0302/25/18 02/25/18 Range/Units 07:17 16:59 19:39 WBC (3.8-10.6) k/uL RBC (4.30-5.90) m/uL Hgb (13.0-17.5) gm/dL Hct (39.0-53.0) % RDW (11.5-15.5) % Neutrophils # (Manual) (1.3-7.7) k/uL Lymphocytes # (Manual) (1.0-4.8) k/uL PT (9.0-12.0) sec INR (<1.2) Glucose (74-99) mg/dL POC Glucose (mg/dL) 134 H 177 H (75-99) mg/dL Calcium (8.4-10.2) mg/dL Total Bilirubin (0.2-1.3) mg/dL AST (17-59) U/L ALT (21-72) U/L Alkaline Phosphatase (38-126) U/L Total Protein (6.3-8.2) g/dL Albumin (3.5-5.0) g/dL CA 19-9 Antigen 4566.0 H (0.0-34.9) U/mL 02/26/18 02/26/18 02/26/18 Range/Units 06:40 06:40 07:37 WBC 11.0 H (3.8-10.6) k/uL RBC 3.88 L (4.30-5.90) m/uL Hgb 11.8 L (13.0-17.5) gm/dL Hct 37.7 L (39.0-53.0) % RDW 16.2 H (11.5-15.5) % Neutrophils # (Manual) 9.57 H (1.3-7.7) k/uL Lymphocytes # (Manual) 0.99 L (1.0-4.8) k/uL PT (9.0-12.0) sec INR (<1.2) Glucose 129 H (74-99) mg/dL POC Glucose (mg/dL) 118 H (75-99) mg/dL Calcium 8.3 L (8.4-10.2) mg/dL Total Bilirubin 8.1 H (0.2-1.3) mg/dL AST 102 H (17-59) U/L ALT 102 H (21-72) U/L Alkaline Phosphatase 975 H (38-126) U/L Total Protein 5.8 L (6.3-8.2) g/dL Albumin 2.3 L (3.5-5.0) g/dL CA 19-9 Antigen (0.0-34.9) U/mL 02/26/18 Range/Units 08:40 WBC (3.8-10.6) k/uL RBC (4.30-5.90) m/uL Hgb (13.0-17.5) gm/dL Hct (39.0-53.0) % RDW (11.5-15.5) % Neutrophils # (Manual) (1.3-7.7) k/uL Lymphocytes # (Manual) (1.0-4.8) k/uL PT 12.2 H (9.0-12.0) sec INR 1.3 H (<1.2) Glucose (74-99) mg/dL POC Glucose (mg/dL) (75-99) mg/dL Calcium (8.4-10.2) mg/dL Total Bilirubin (0.2-1.3) mg/dL AST (17-59) U/L ALT (21-72) U/L Alkaline Phosphatase (38-126) U/L Total Protein (6.3-8.2) g/dL Albumin (3.5-5.0) g/dL CA 19-9 Antigen (0.0-34.9) U/mL Microbiology - Last 24 Hours (Table) 02/24/18 04:30 Gram Stain - Final Buttock Wound Culture - Final 02/22/18 11:12 Blood Culture - Preliminary Blood No Growth after 96 hours 02/24/18 21:30 Urine Culture - Final Urine,Voided Assessment and Plan Plan: Obstructive jaundice with hepatic biliary obstruction, pancreatic mass, patient is status post ERCP feeling much better we'll repeat the compressive metabolic profile tomorrow possibility of discharge tomorrow Bilateral leg ulcerations and sacral pressure ulcer: Patient is presently on Zosyn awaiting wound cultures and sensitivities History of peripheral neuropathy Diabetes type 2 Diabetic retinopathy with legal blindness History of CVA Hypertension DJD
[2018-02-26 14:24] VITALS: PULSE 60
--- NOTE | 2018-02-26 15:07 | P.PN ---
Subjective Progress Note Date: 02/26/18 Principal diagnosis: jaundice Pt is seen s/p ERCP, he is currently denying nausea or pain, family at bedside. Objective - Vital Signs Vital signs: Vital Signs Temp 98.2 F 02/26/18 12:45 Pulse 60 02/26/18 14:23 Resp 18 02/26/18 14:23 BP 131/67 02/26/18 12:45 Pulse Ox 98 02/26/18 12:45 Intake & Output 02/25/18 02/26/18 02/26/18 18:59 06:59 18:59 Intake Total 240 120 Balance 240 120 Weight 86.183 kg Intake: IV 0 Oral 240 120 Other: Voiding Method Diaper Diaper Diaper Incontinent Incontinent Incontinent # Voids 3 2 3 - Exam WD, overweight male laying in bed, NAD, respirations even and unlabored, alert. - Labs CBC & Chem 7: 02/26/18 06:40 02/26/18 06:40 Labs: Abnormal Lab Results - Last 24 Hours (Table) 02/23/18 02/25/18 02/25/18 Range/Units 07:17 16:59 19:39 WBC (3.8-10.6) k/uL RBC (4.30-5.90) m/uL Hgb (13.0-17.5) gm/dL Hct (39.0-53.0) % RDW (11.5-15.5) % Neutrophils # (Manual) (1.3-7.7) k/uL Lymphocytes # (Manual) (1.0-4.8) k/uL PT (9.0-12.0) sec INR (<1.2) Glucose (74-99) mg/dL POC Glucose (mg/dL) 134 H 177 H (75-99) mg/dL Calcium (8.4-10.2) mg/dL Total Bilirubin (0.2-1.3) mg/dL AST (17-59) U/L ALT (21-72) U/L Alkaline Phosphatase (38-126) U/L Total Protein (6.3-8.2) g/dL Albumin (3.5-5.0) g/dL CA 19-9 Antigen 4566.0 H (0.0-34.9) U/mL 02/26/18 02/26/18 02/26/18 Range/Units 06:40 06:40 07:37 WBC 11.0 H (3.8-10.6) k/uL RBC 3.88 L (4.30-5.90) m/uL Hgb 11.8 L (13.0-17.5) gm/dL Hct 37.7 L (39.0-53.0) % RDW 16.2 H (11.5-15.5) % Neutrophils # (Manual) 9.57 H (1.3-7.7) k/uL Lymphocytes # (Manual) 0.99 L (1.0-4.8) k/uL PT (9.0-12.0) sec INR (<1.2) Glucose 129 H (74-99) mg/dL POC Glucose (mg/dL) 118 H (75-99) mg/dL Calcium 8.3 L (8.4-10.2) mg/dL Total Bilirubin 8.1 H (0.2-1.3) mg/dL AST 102 H (17-59) U/L ALT 102 H (21-72) U/L Alkaline Phosphatase 975 H (38-126) U/L Total Protein 5.8 L (6.3-8.2) g/dL Albumin 2.3 L (3.5-5.0) g/dL CA 19-9 Antigen (0.0-34.9) U/mL 02/26/18 Range/Units 08:40 WBC (3.8-10.6) k/uL RBC (4.30-5.90) m/uL Hgb (13.0-17.5) gm/dL Hct (39.0-53.0) % RDW (11.5-15.5) % Neutrophils # (Manual) (1.3-7.7) k/uL Lymphocytes # (Manual) (1.0-4.8) k/uL PT 12.2 H (9.0-12.0) sec INR 1.3 H (<1.2) Glucose (74-99) mg/dL POC Glucose (mg/dL) (75-99) mg/dL Calcium (8.4-10.2) mg/dL Total Bilirubin (0.2-1.3) mg/dL AST (17-59) U/L ALT (21-72) U/L Alkaline Phosphatase (38-126) U/L Total Protein (6.3-8.2) g/dL Albumin (3.5-5.0) g/dL CA 19-9 Antigen (0.0-34.9) U/mL Microbiology - Last 24 Hours (Table) 02/24/18 04:30 Gram Stain - Final Buttock Wound Culture - Final 02/22/18 11:12 Blood Culture - Preliminary Blood No Growth after 96 hours 02/24/18 21:30 Urine Culture - Final Urine,Voided Assessment and Plan (1) Jaundice Narrative/Plan: This is what led to hospitalization. Pt has had ERCP this AM. Op note was reviewed after pt seen. Biliary stent has been placed so, anticipate improvement in jaundice, will cont to followup Current Visit: Yes Status: Acute Priority: High Code(s): R17 - UNSPECIFIED JAUNDICE SNOMED Code(s): 32527899 (2) Pancreatic mass Narrative/Plan: Confirmation of pancreatic head mass on ERCP/op note, biopsies done, stenting done. Await pathology to develop plan of care, will f/u with pt and family. Current Visit: Yes Status: Acute Priority: High Code(s): K86.9 - DISEASE OF PANCREAS, UNSPECIFIED SNOMED Code(s): 219287619 Plan: Doctor attests: I performed a history and physical examination of this patient, discussed with dictator. I agree with dictators note, documented as a scribe.
[2018-02-26] MEDS ORDERED: RX INFO: IV CONTRAST WAS GIVEN 1 EACH MISC MISCELLANE PRN (15:08)
--- NOTE | 2018-02-26 16:04 | PN ---
PROGRESS NOTE DATE OF SERVICE: 02/26/2018. REASON FOR FOLLOW UP: 1. Multiple pressure ulcers to the sacrum, right leg and left heel area. 2. Leukocytosis. INTERVAL HISTORY: The patient is afebrile. The patient is status post ERCP this morning. Patient tolerated the procedure. Denies having any chest pain, shortness of breath, abdominal pain, nausea, vomiting or diarrhea. EXAMINATION: Blood pressure 131/67 with a pulse of 73, temperature 98.2. He is 98% on 2 L nasal cannula. General description is a middle-aged male lying in bed in no distress. Respiratory system: Unlabored breathing. Clear to auscultation anteriorly. Heart S1, S2. Regular rate and rhythm. Abdomen soft, no tenderness. Wounds are currently dressed up. No obvious drainage on the dressing. LABS: Hemoglobin is 11.8, white count 11,000, BUN of 17, creatinine 0.68. DIAGNOSTIC IMPRESSION/PLAN: 1. Patient with a sacral pressure ulcer stage III with some slough at the base. Local wound care with Medihoney. Moist dressing, keep the area off the pressure. 2. Patient with right lateral leg pressure ulcer stage III local wound care with Medihoney, moist dressing, keep the area off pressure. 3. Patient with left heel stage III pressure ulcer. Local wound care with Medihoney, moist dressing to keep the area off pressure. Bilateral heel protectors. 4. Patient with leukocytosis, reactive. The patient is status post ERCP. Currently on Zosyn. Culture so far negative. We will monitor closely. MMODL / IJN: [id number] /
[2018-02-26 18:06] LABS: Glucose,Whole Blood 131 mg/dL (75-99)
[2018-02-26 18:20] VITALS: RESP 16
[2018-02-26] MEDS: MORPHINE ORAL SOLN 10 MG/5 ML CUP PO PRN (18:20)
[2018-02-26 20:04] LABS: Glucose,Whole Blood 162 mg/dL (75-99)
[2018-02-26] MEDS: MELATONIN 5 MG TABLET PO SCH (20:46)
[2018-02-27] MEDS: PIPERACILLIN-TAZOBACTAM 3.375 GM in DEXTROSE/WATER 1 50ML.BAG IVPB SCH ×2 (00:57→07:36)
[2018-02-27] MEDS: MORPHINE ORAL SOLN 10 MG/5 ML CUP PO PRN (00:59)
[2018-02-27] MEDS: SODIUM CHLORIDE 0.9% 1,000 ML IV SCH ×2 (01:00→07:37)
[2018-02-27] MEDS: GABAPENTIN 400 MG CAP PO SCH ×2 (03:32→11:04)
[2018-02-27] MEDS: HYDROcodone/APAP 5-325MG 1 EACH TAB PO PRN ×3 (03:32→11:33)
[2018-02-27 07:09] LABS: Glucose,Whole Blood 119 mg/dL (75-99)
[2018-02-27 07:27] VITALS: BP 122/78; TEMP 97.5
[2018-02-27 07:30] LABS: HCT 37.7 % (39.0-53.0); HGB 11.5 gm/dL (13.0-17.5); Hypochromasia Moderate; MCH 29.7 pg (25.0-35.0); MCHC 30.5 g/dL (31.0-37.0); MCV 97.3 fL (80.0-100.0); Mean Platelet Volume 7.6; Platelet Count 328 k/uL (150-450); RBC 3.88 m/uL (4.30-5.90); WBC 10.6 k/uL (3.8-10.6)
[2018-02-27] MEDS: TAMSULOSIN 0.4 MG CAP.ER.24H PO SCH (07:35)
[2018-02-27] MEDS: ARTIFICIAL TEARS-HYPROMELLOSE DROPS 15 ML BTL LEFT EYE SCH (07:36)
[2018-02-27] MEDS: ENOXAPARIN 40 MG/0.4 ML SYRINGE SQ SCH (07:36)
[2018-02-27] MEDS: INSULIN ASPART 100 UNIT/ML 1 ML 10 ML VIAL SQ SCH ×2 (07:36→11:33)
[2018-02-27] MEDS: CLOPIDOGREL 75 MG TAB PO SCH (07:36)
[2018-02-27] MEDS: CARVEDILOL 3.125 MG TAB PO SCH (07:36)
[2018-02-27] MEDS: SERTRALINE 25 MG TAB PO SCH (07:37)
[2018-02-27 07:54] LABS: ALT 118 U/L (21-72); AST 172 U/L (17-59); Albumin 2.3 g/dL (3.5-5.0); Alkaline Phosphatase 1036 U/L (38-126); Anion Gap 10 mmol/L; Blood Urea Nitrogen 18 mg/dL (9-20); Calcium 8.3 mg/dL (8.4-10.2); Carbon Dioxide 22 mmol/L (22-30); Chloride 106 mmol/L (98-107); Glucose 117 mg/dL (74-99); Potassium 4.9 mmol/L (3.5-5.1); Sodium 138 mmol/L (137-145); Total Bilirubin 6.6 mg/dL (0.2-1.3); Total Protein 5.6 g/dL (6.3-8.2)
[2018-02-27 08:03] LABS: Eosinophils # (M) 0.11 k/uL (0-0.7); Lymphocytes # (M) 2.54 k/uL (1.0-4.8); Monocytes # (M) 0.74 k/uL (0-1.0); Neutrophils # (M) 7.21 k/uL (1.3-7.7); Neutrophils % (M) 68 %; Nucleated Red Blood Cells 0 /100 WBC (0-0); Total Cells Counted 100
[2018-02-27] MEDS ORDERED: PANTOPRAZOLE 40 MG TABLET PO SCH (09:00)
[2018-02-27 11:05] LABS: Glucose,Whole Blood 139 mg/dL (75-99)
[2018-02-27] MEDS: MULTIVITAMINS, THERA 1 EACH TAB PO SCH (11:05)
--- NOTE | 2018-02-27 12:44 | P.DS ---
Providers Date of admission: 02/22/18 15:52 Expected date of discharge: 02/27/18 Attending physician: Amrik Lorenzana Consults: 02/22/18 15:53 Consult Physician Urgent Consulting Provider: Sha Tello Consult Reason/Comments: hepatic failure, pancreatic carcinoma Do you want consulting provider notified?: Yes 02/22/18 20:36 Consult Physician Routine Consulting Provider: Cristian Gamble Consult Reason/Comments: malignancy Do you want consulting provider notified?: Yes 02/23/18 16:36 Consult Physician Routine Consulting Provider: Latasha Blakely Consult Reason/Comments: decub Do you want consulting provider notified?: Yes Primary care physician: Tyrell Nash [facility] Course: Final Diagnoses: Obstructive jaundice with hepatic biliary obstruction, pancreatic mass, patient is status post ERCP, pathology pending. Bilateral leg ulcerations and sacral pressure ulcer, polymicrobial with many polys Warfel nuclear leukocytes, many gram-negative bacilli, many gram-positive cocci, multiple morphologies History of peripheral neuropathy Diabetes type 2 Diabetic retinopathy with legal blindness History of CVA Hypertension [facility] Hospital course: This is a 57-year-old male patient who presented to the hospital with obstructive jaundice and hepatic biliary obstruction. Evaluated by oncology, GI, infectious disease. The patient has a pancreatic mass, status post ERCP with biopsies and stenting completed. Tolerated procedure well. Pathology pending. The patient is moderately jaundiced. His appetite is poor. Denies any abdominal discomfort. His discomfort is mainly in his tailbone and he is receiving pain medication which is effective. He is hemodynamically stable. Afebrile. Maintained on IV antibiotics with no further antibiotics recommended at discharge as per ID. Patient has been cleared by all consults for discharge. Patient is being discharged to [facility] in a stable condition with guarded prognosis. PHYSICAL EXAMINATION: GENERAL: The patient is alert and oriented x3, not in any acute distress. Well developed, well nourished. HEENT: Pupils are round and equally reacting to light. EOMI. patient does have scleral icterus and yellowish discoloration of skin. No conjunctival pallor. Normocephalic, atraumatic. No pharyngeal erythema. No thyromegaly. CARDIOVASCULAR: S1 and S2 present. No murmurs, rubs, or gallops. PULMONARY: Chest is clear to auscultation, no wheezing or crackles. ABDOMEN: Soft, nontender, nondistended, normoactive bowel sounds. No palpable organomegaly. MUSCULOSKELETAL: No joint swelling or deformity. EXTREMITIES: No cyanosis, clubbing, or pedal edema. NEUROLOGICAL: Gross neurological examination did not reveal any focal deficits. SKIN: No rashes. Microbiology 02/24/18 04:30 Buttock Gram Stain - Final 02/24/18 04:30 Buttock Wound Culture - Final 02/22/18 11:12 Blood Blood Culture - Preliminary No Growth after 96 hours 02/24/18 21:30 Urine,Voided Urine Culture - Final 02/23/18 00:15 Urine,Catheterized Urine Culture - Final The impression and plan of care has been dictated as directed. : I performed a history and examination of this patient, discussed the same with the dictator. I agree with the dictator's note ,documented as a scribe. Any additional findings or plans will be noted. Time taken: 35 minutes Patient Condition at Discharge: Stable Plan - Discharge Summary Discharge Rx Participant: No New Discharge Prescriptions: New INSULIN LISPRO (HumaLOG) [humaLOG] 0 unit SQ ACHS #1 vial Continue Bisacodyl 10 mg RECTAL DAILY PRN PRN Reason: Constipation Acetaminophen Tab [Tylenol] 1,000 mg PO Q8H PRN PRN Reason: Pain Gabapentin [Neurontin] 400 mg PO Q6H Heparin Sodium,Porcine [Heparin Sodium] 5,000 unit SQ Q12H Sertraline [Zoloft] 75 mg PO DAILY Carvedilol [Coreg] 3.125 mg PO BID Multivitamins, Thera [Multivitamin (formulary)] 1 tab PO DAILY Melatonin 5 mg PO HS Med Plus 2.0 90 ml PO DAILY Clopidogrel [Plavix] 75 mg PO DAILY Tamsulosin HCl [Flomax] 0.4 mg PO DAILY Famotidine [Pepcid] 20 mg PO DAILY Polyvinyl Alcohol Danni 1.4% 1 drop LEFT EYE TID HYDROcodone/APAP 5-325MG [[place] 5-325] 1 tab PO Q6H PRN #20 tab PRN Reason: Pain Discharge Medication List Acetaminophen Tab [Tylenol] 1,000 mg PO Q8H PRN 02/22/18 [History] Bisacodyl 10 mg RECTAL DAILY PRN 02/22/18 [History] Carvedilol [Coreg] 3.125 mg PO BID 02/22/18 [History] Clopidogrel [Plavix] 75 mg PO DAILY 02/22/18 [History] Famotidine [Pepcid] 20 mg PO DAILY 02/22/18 [History] Gabapentin [Neurontin] 400 mg PO Q6H 02/22/18 [History] Heparin Sodium,Porcine [Heparin Sodium] 5,000 unit SQ Q12H 02/22/18 [History] Med Plus 2.0 90 ml PO DAILY 02/22/18 [History] Melatonin 5 mg PO HS 02/22/18 [History] Multivitamins, Thera [Multivitamin (formulary)] 1 tab PO DAILY 02/22/18 [History ] Polyvinyl Alcohol Danni 1.4% 1 drop LEFT EYE TID 02/22/18 [History] Sertraline [Zoloft] 75 mg PO DAILY 02/22/18 [History] Tamsulosin HCl [Flomax] 0.4 mg PO DAILY 02/22/18 [History] HYDROcodone/APAP 5-325MG [[place] 5-325] 1 tab PO Q6H PRN #20 tab 02/27/18 [Rx] INSULIN LISPRO (HumaLOG) [humaLOG] 0 unit SQ ACHS #1 vial 02/27/18 [Rx] Follow up Appointment(s)/Referral(s): Tyrell Nash MD [Primary Care Provider] - 3 Days Sha Tello MD [STAFF PHYSICIAN] - 2 Weeks Latasha Blakely MD [STAFF PHYSICIAN] - 1 Week Cristian Gamble MD [STAFF PHYSICIAN] - 1 Week Activity/Diet/Wound Care/Special Instructions: No antibiotic as per ID. local wound care as per ID; medical honey, moist dressing, keep area of pressure, bilateral heel protectors Diet: Heart healthy, consistent carb Accu-Cheks before meals and at bedtime CBC, CMP in 3 days
--- NOTE | 2018-02-27 15:35 | PN ---
PROGRESS NOTE DATE OF SERVICE: 02/27/2018 REASON FOR FOLLOWUP: 1. Multiple pressure wounds. 2. Leukocytosis, reactive. INTERVAL HISTORY: The patient is afebrile. He is currently breathing comfortably. Denies having any chest pain, shortness of breath, cough, no abdominal pain or any diarrhea. PHYSICAL EXAMINATION: Blood pressure 120/70 with a pulse of 60, temperature 97.5. He is 98% on room air. General description is a middle-aged male, lying in bed in no distress. RESPIRATORY SYSTEM: Unlabored breathing, clear to auscultation anteriorly. HEART: S1, S2. Regular rate and rhythm. ABDOMEN: Soft, no tenderness. LABS: Hemoglobin is 11.5, white count 10.6 with a BUN of 18, creatinine 0.68. Blood culture negative. Wound culture negative. DIAGNOSTIC IMPRESSION AND PLAN: 1. Patient with a stage III sacral wound with slough but no cellulitis. Local wound care with Medihoney followed by moist dressing. 2. Patient with right leg stage II pressure ulcer and left heel stage III pressure ulcer. Local wound care with Medihoney followed by moist dressing, keep the area off the pressure. No need for any systemic antibiotic therapy. Continue supportive care. MMODL / IJN: [id number] /
--- NOTE | 2018-03-01 09:12 | CDI ---
Last Revision, October 2017 Documentation Clarification Form Date: 03/01/18 From: Jasminamaddi Manley Betty Caban, Direct Care Counselor between 8:30 am & 5 pm Freya Admit Date: 02/22/2018 3:52:00 PM Patient Name: Darrel Mckinnon Visit Number: [id number] Discharge Date: 02/27/18 ATTENTION: The Clinical Documentation Specialists (CDI) and [facility] Coding Staff appreciate your assistance in clarifying documentation. Please respond to the clarification below the line at the bottom and electronically sign. The CDI & [facility] Coding staff will review the response and follow-up if needed. Please note: Queries are made part of the Legal Health Record. If you have any questions, please contact the author of this message via ITS. Dr. Sharlene Lorenzana The final diagnosis of the pathology report states: Common bile duct- No tumor cells identified Discharge summary states "obstructive jaundice with hepatic bilary obstruction, pancreatic mass, status post ERCP, pathology pending". Hematology Consult pancreatic carcinoma, path pending. Treatment: ERCP with brushings and biliary duct stent In your professional opinion, can you specify the cause of the pancreatic mass? Pancreatic cancer ruled in Pancreatic cancer ruled out Other (please specify) Unable to determine Please continue to document in your progress notes and discharge summary in order to capture severity of illness and risk of mortality. Include clinical findings that support your diagnosis. MTDD
--- NOTE | 2018-03-04 15:50 | CDI ---
Last Revision, October 2017 Documentation Clarification Form Date: 03/04/18 From: Jasmina Vineet Betty Caban, Lead Material Handler between 8:30 am & 5 pm Freya Admit Date: 02/22/2018 3:52:00 PM Patient Name: Darrel Mckinnon Visit Number: [id number] Discharge Date: 02/27/18 ATTENTION: The Clinical Documentation Specialists (CDI) and [facility] Coding Staff appreciate your assistance in clarifying documentation. Please respond to the clarification below the line at the bottom and electronically sign. The CDI & [facility] Coding staff will review the response and follow-up if needed. Please note: Queries are made part of the Legal Health Record. If you have any questions, please contact the author of this message via ITS. Dr. Sharlene Lorenzana The patient has pressure ulcers to the sacrum, right lateral leg and left heel. Wound assessment documents the coccyx//sacrum ulcer as unstagable, right lateral leg and left heel to Stage IV. Per your documentation the sacral'coccyx, left heel ulcer to Stage III; the right lateral pressure ucler from Stage III to Stage II. In your professional opinion, can you please clarify the stage on each of the 3 pressure ulcers: 1- sacral/coccyx 2- left heel 3- right lateral leg: Stage 1 Pressure/Decubitus Ulcer (intact skin, non-blanching redness of local area) Stage 2 Pressure/Decubitus Ulcer (Partial thickness, loss of dermis, pink wound bed) Stage 3 Pressure/Decubitus Ulcer (Full thickness tissue loss) Stage 4 Pressure/Decubitus Ulcer (Full thickness tissue loss with exposed bone , tendon, or muscle. May have slough or eschar present) Unstageable Other condition, please specify Unable to determine Please continue to document in your progress notes and discharge summary in order to capture severity of illness and risk of mortality. Include clinical findings that support your diagnosis. MTDD
--- NOTE | 2018-03-04 16:05 | CDI ---
Last Revision, October 2017 Documentation Clarification Form Date: 03/04/18 From: Jasmina Vineet Betty Caban, Ornamental Ironworker between 8:30 am & 5 pm Freya Admit Date: 02/22/2018 3:52:00 PM Patient Name: Darrel Mckinnon Visit Number: [id number] Discharge Date: 02/27/18 ATTENTION: The Clinical Documentation Specialists (CDI) and [facility] Coding Staff appreciate your assistance in clarifying documentation. Please respond to the clarification below the line at the bottom and electronically sign. The CDI & [facility] Coding staff will review the response and follow-up if needed. Please note: Queries are made part of the Legal Health Record. If you have any questions, please contact the author of this message via ITS. Dr. Sha Tello The patient had performed an ERCP with brushings for cytology and placement of a biliary stent. Per the operative report "Both the common bile duct and the biliary tree and the pancreatic duct were significantly dilated. and they both taper in the area of the head of the pancreas consisten with double duct sign. I used the brushing over the guidewire to obtain the brushings from the distal common bile duct and the ampulla area and then I place over the guidewire a 7-Malay 5 cm [place] biliary stent." In your professional opinion, can you please clarify the area that the stent was placed? Ampulla of Vater Common bile duct Cystic duct Hepatic duct, common Hepatic duct left Hepatic duct right Other, please specify Unable to determine Please continue to document in your progress notes and discharge summary in order to capture severity of illness and risk of mortality. Include clinical findings that support your diagnosis. MTDD
--- NOTE | 2018-03-09 07:43 | CDI ---
Last Revision, October 2017 Documentation Clarification Form Date: 03/09/18 From: Jasmina Vineet Betty Caban, Senior Partner between 8:30 am & 5 pm Freya Admit Date: 02/22/2018 3:52:00 PM Patient Name: Darrel Mckinnon Visit Number: [id number] Discharge Date: 03/09/18 ATTENTION: The Clinical Documentation Specialists (CDI) and [facility] Coding Staff appreciate your assistance in clarifying documentation. Please respond to the clarification below the line at the bottom and electronically sign. The CDI & [facility] Coding staff will review the response and follow-up if needed. Please note: Queries are made part of the Legal Health Record. If you have any questions, please contact the author of this message via ITS. Dr. Sharlene Lorenzana The final diagnosis of the pathology report states: Common bile duct- No tumor cells identified Discharge summary states "obstructive jaundice with hepatic bilary obstruction, pancreatic mass, status post ERCP, pathology pending". Hematology Consult pancreatic carcinoma, path pending. Treatment: ERCP with brushings and biliary duct stent In your professional opinion, can you specify the cause of the pancreatic mass? Pancreatic cancer ruled in Pancreatic cancer ruled out Other (please specify) Unable to determine Please continue to document in your progress notes and discharge summary in order to capture severity of illness and risk of mortality. Include clinical findings that support your diagnosis. unable to determine MTDD
--- NOTE | 2018-03-13 14:58 | CDI ---
Last Revision, October 2017 Documentation Clarification Form (Second time) Date: 03/13/18 From: Jasmina Vineet Betty Caban, Paper Bag Making Machinist between 8:30 am & 5 pm Freya Admit Date: 02/22/2018 3:52:00 PM Patient Name: Darrel Mckinnon Visit Number: [id number] Discharge Date: 02/27/18 ATTENTION: The Clinical Documentation Specialists (CDI) and [facility] Coding Staff appreciate your assistance in clarifying documentation. Please respond to the clarification below the line at the bottom and electronically sign. The CDI & [facility] Coding staff will review the response and follow-up if needed. Please note: Queries are made part of the Legal Health Record. If you have any questions, please contact the author of this message via ITS. Dr. Sha Tello The patient had performed an ERCP with brushings for cytology and placement of a biliary stent. Per the operative report "Both the common bile duct and the biliary tree and the pancreatic duct were significantly dilated. and they both taper in the area of the head of the pancreas consistent with double duct sign. I used the brushing over the guidewire to obtain the brushings from the distal common bile duct and the ampulla area and then I place over the guidewire a 7-Persian 5 cm [place] biliary stent." In your professional opinion, can you please clarify the area that the stent was placed? Ampulla of Vater Common bile duct Cystic duct Hepatic duct, common Hepatic duct left Hepatic duct right Other, please specify Unable to determine Please continue to document in your progress notes and discharge summary in order to capture severity of illness and risk of mortality. Include clinical findings that support your diagnosis. MTDD
--- NOTE | 2018-03-16 16:12 | CDI ---
Last Revision, October 2017 Documentation Clarification Form Date: 03/16/18 From: Jasmina Vineet Betty Caban, Linux System Administrator between 8:30 am & 5 pm Freya Admit Date: 02/22/2018 Patient Name: Darrel Mckinnon Visit Number: [id number] Discharge Date: 02/27/18 ATTENTION: The Clinical Documentation Specialists (CDI) and [facility] Coding Staff appreciate your assistance in clarifying documentation. Please respond to the clarification below the line at the bottom and electronically sign. The CDI & [facility] Coding staff will review the response and follow-up if needed. Please note: Queries are made part of the Legal Health Record. If you have any questions, please contact the author of this message via ITS. Dr. Sha Tello, You performed an ERCP with brushings for cytology and placement of a biliary stent. Per the operative report "Both the common bile duct and the biliary tree and the pancreatic duct were significantly dilated. and they both taper in the area of the head of the pancreas consistent with double duct sign." "I used the brushing over the guidewire to obtain the brushings from the distal common bile duct and the ampulla area and then I place over the guidewire a 7- Persian 5 cm [place] biliary stent." Please clarify the area that the stent was placed? Ampulla of Vater or Common bile duct Other, please specify Unable to determine MTDD
== END 2018-02-27 15:15 | DRG 438 ==
LOC: EC 11:03 → 5ONC 15:52
PROVIDERS: ADMIT Hospitalist; ATTEND Hospitalist
PROC: 0FB98ZX Excision of Common Bile Duct, Via Natural or Artificial Opening Endoscopic, Diagnostic (ICD-10-PCS; 2018-02-26)
PROC: 0F798DZ Dilation of Common Bile Duct with Intraluminal Device, Via Natural or Artificial Opening Endoscopic (ICD-10-PCS; 2018-02-26)
PROC: 0FBC8ZX Excision of Ampulla of Vater, Via Natural or Artificial Opening Endoscopic, Diagnostic (ICD-10-PCS; principal; 2018-02-26 08:05)
DX: K86.9 Disease of pancreas, unspecified (principal); L89.893 Pressure ulcer of other site, stage 3; K83.1 Obstruction of bile duct; L89.153 Pressure ulcer of sacral region, stage 3; L89.623 Pressure ulcer of left heel, stage 3; K82.1 Hydrops of gallbladder; I69.351 Hemiplegia and hemiparesis following cerebral infarction affecting right dominant side; E11.42 Type 2 diabetes mellitus with diabetic polyneuropathy; E11.43 Type 2 diabetes mellitus with diabetic autonomic (poly)neuropathy; E11.319 Type 2 diabetes mellitus with unspecified diabetic retinopathy without macular edema; K31.84 Gastroparesis; K72.90 Hepatic failure, unspecified without coma; E78.5 Hyperlipidemia, unspecified; I10 Essential (primary) hypertension; R40.2362 Coma scale, best motor response, obeys commands, at arrival to emergency department; R40.2142 Coma scale, eyes open, spontaneous, at arrival to emergency department; R40.2252 Coma scale, best verbal response, oriented, at arrival to emergency department; I69.398 Other sequelae of cerebral infarction; I25.2 Old myocardial infarction; M19.91 Primary osteoarthritis, unspecified site; H40.9 Unspecified glaucoma; H54.8 Legal blindness, as defined in USA; R32 Unspecified urinary incontinence; Z79.4 Long term (current) use of insulin; Z79.02 Long term (current) use of antithrombotics/antiplatelets; Z79.899 Other long term (current) drug therapy; Z87.891 Personal history of nicotine dependence; Z90.49 Acquired absence of other specified parts of digestive tract; Z95.810 Presence of automatic (implantable) cardiac defibrillator; Z99.3 Dependence on wheelchair; Z87.81 Personal history of (healed) traumatic fracture; Z98.42 Cataract extraction status, left eye
CPT/HCPCS: 36415; 43274; 74177; 74328; 76700; 80053; 81001; 82150; 83605; 83690; 85025; 85610; 85730; 86301; 87040; 87070; 87086; 87205; 88104; 88305; 93005; 96361; 96374; 99285